=== PATIENT | male | born 1990 | race American Indian/Alaskan Native ===

== ENCOUNTER 2019-05-22 09:06 | Emergency (ER) | payer OTHER ==
[~2019-05-22] VITALS: Ht 165.1 cm; Wt 89.4 kg
[2019-05-22 09:52] VITALS: BP 140/86
[2019-05-22] MEDS ORDERED: TETANUS-DIPTH-ACEL PERTUSSIS 0.5ML SYRG IM ONE (10:00)
== END 2019-05-22 10:29 | disposition home or self-care (01) ==
LOC: ER 09:06
DX: S60.511A Abrasion of right hand, initial encounter (principal); W22.8XXA Striking against or struck by other objects, initial encounter; Y93.89 Activity, other specified; Y92.89 Other specified places as the place of occurrence of the external cause; Y99.8 Other external cause status
CPT/HCPCS: 90471; 90715

== ENCOUNTER 2023-03-03 11:08 | Emergency (ER) | payer SELFPAY ==
[~2023-03-03] VITALS: Ht 165.1 cm; Wt 92.0 kg
[2023-03-03] MEDS ORDERED: CETI10CA PO (14:59)
[2023-03-03 15:06] VITALS: BP 137/97; PULSE 99; RESP 16; TEMP 98.3; O2SAT 99
== END 2023-03-03 15:10 | disposition home or self-care (01) ==
LOC: ER 11:08
DX: H65.91 Unspecified nonsuppurative otitis media, right ear (principal)